=== PATIENT | female | born 1965 | race Hispanic/Latino ===

== ENCOUNTER 2022-07-01 09:06 | Emergency (ER) | payer OTHER ==
[~2022-07-01] VITALS: Ht 149.9 cm; Wt 45.4 kg
[2022-07-01] MEDS ORDERED: ACETAMINOPHEN 500 MG TABLET PO SCH (09:14)
[2022-07-01 09:29] LABS: BASOPHILS % (AUTO) 0.7 % (0.0-5.0); EOSINOPHILS % (AUTO) 0.7 % (0.0-8.0); HEMATOCRIT 39.1 % (36-48); LYMPHOCYTES % (AUTO) 36.3 % (21.0-51.0); MEAN CORPUSCULAR HEMOGLOBIN 32.6 pg (27.0-33.0); MEAN CORPUSCULAR VOLUME 93.1 fL (79-99); MONOCYTES % (AUTO) 7.8 % (3.0-13.0); NEUTROPHILS % (AUTO) 54.3 % (40.0-77.0); PLATELET COUNT (AUTO) 219 K/uL (130-400); RED CELL DISTRIBUTION WIDTH 12.2 % (11.0-15.5); WHITE BLOOD COUNT (AUTO) 4.4 K/uL (4.8-10.8)
[2022-07-01 09:46] LABS: ALBUMIN 4.3 g/dL (3.5-5.0); CREATININE 0.6 mg/dL (0.5-1.5); POTASSIUM 3.6 mmol/L (3.5-5.1); TOTAL PROTEIN, SERUM 7.7 g/dL (6.0-8.3)
[2022-07-01 10:28] VITALS: BP 123/69
[2022-07-01] MEDS ORDERED: NAPR-1196 PO (10:31)
== END 2022-07-01 10:34 | disposition home or self-care (01) ==
LOC: EDH 09:06
DX: R07.89 Other chest pain (principal); M54.2 Cervicalgia; E11.9 Type 2 diabetes mellitus without complications; I10 Essential (primary) hypertension; V49.49XA Driver injured in collision with other motor vehicles in traffic accident, initial encounter; Y93.89 Activity, other specified; Y92.89 Other specified places as the place of occurrence of the external cause; Y99.8 Other external cause status
CPT/HCPCS: 36415; 70450; 71045; 72125; 80053; 82550; 84484; 85025; 93005